=== PATIENT | female | born 1990 | race Caucasian/White ===

== ENCOUNTER → 2019-03-11 | Outpatient (CLI) | payer BC, SELFPAY ==
[2019-03-11 19:16] VITALS: BMI 44.5
[2019-03-19 08:43] LABS: HPV HC, High Risk Negative (Negative); HPV Reflexed? YES, CHARGE PATIENT
== END | disposition home or self-care (01) ==
PROVIDERS: Nurse Practitioner
DX: Z00.00 Encounter for general adult medical examination without abnormal findings (principal)
CPT/HCPCS: 87624; 88175; G0145

== ENCOUNTER → 2019-05-09 | Outpatient (CLI) | payer BC, SELFPAY ==
[2019-05-09 18:12] VITALS: BMI 45.3
[2019-05-17 16:00] LABS: HPV HC, High Risk Negative (Negative); HPV Reflexed? YES, CHARGE PATIENT
== END | disposition home or self-care (01) ==
PROVIDERS: Referring Provider Nurse Practitioner; Visit Provider Nurse Practitioner
DX: R87.619 Unspecified abnormal cytological findings in specimens from cervix uteri (principal)
CPT/HCPCS: 87624; 88175; G0145

== ENCOUNTER → 2020-04-27 21:01 | Outpatient (CLI) | payer BC, SELFPAY ==
[2020-04-27 18:47] VITALS: BMI 44.4
[2020-05-04 14:01] LABS: HPV Reflexed? NOT INDICATED
== END ==
PROVIDERS: Referring Provider Nurse Practitioner; Visit Provider Nurse Practitioner
DX: Z01.419 Encounter for gynecological examination (general) (routine) without abnormal findings (principal)
CPT/HCPCS: 88175; G0145

== ENCOUNTER → 2021-06-03 | Outpatient (CLI) | payer BC, SELFPAY ==
[2021-06-09 14:22] LABS: HPV Reflexed? NOT INDICATED
== END | disposition home or self-care (01) ==
PROVIDERS: Visit Provider Nurse Practitioner
DX: Z01.419 Encounter for gynecological examination (general) (routine) without abnormal findings (principal)
CPT/HCPCS: 88175; G0145

== ENCOUNTER → 2022-10-27 | Outpatient (CLI) | payer BC, SELFPAY ==
[2022-11-02 20:52] LABS: HPV Reflexed? NOT INDICATED
== END | disposition home or self-care (01) ==
PROVIDERS: Visit Provider Nurse Practitioner
DX: Z01.419 Encounter for gynecological examination (general) (routine) without abnormal findings (principal)
CPT/HCPCS: 88175; G0145